=== PATIENT | female | born 1965 | race Caucasian/White ===

== ENCOUNTER 2017-02-15 23:57 | Emergency (ER) | payer MEDICAID ==
[2017-02-16 00:06] VITALS: TEMP 98.1
--- NOTE | 2017-02-16 00:09 | EDPHY ---
H & P Stated Complaint: fall, L head lac HPI/ROS: HPI CHIEF COMPLAINT: Alcohol intoxication, fall, head injury, head laceration HISTORY OF PRESENT ILLNESS: This patient is a 51-year-old female, she presents emergency room by EMS after she slipped on water at the [facility]. Patient brought to the [facility] earlier as she is highly intoxicated with alcohol. She is an alcoholic drinks daily. She states that she slipped and fell and hit her head on the ground. Unclear if there was LOC. She sustained a left eyebrow hematoma and laceration. She denies any other areas of injury specifically denies chest pain shortness of breath, extremity pain. Denies neck pain. Past Medical History: Alcoholism, daily alcohol use, left chest AICD Past Surgical History: Left chest AICD Social History: Lives in [place], daily alcohol use. Family History: Noncontributory ROS REVIEW OF SYSTEMS: A comprehensive 10 point review of systems is otherwise negative aside from elements mentioned in the history of present illness. Exam Constitutional triage nursing summary reviewed, vital signs reviewed, awake/ alert. Eyes normal conjunctivae and sclera, EOMI, PERRLA. HENT head/neck: Left eyebrow hematoma present, with laceration, otherwise no evidence of significant head trauma, no midline step-offs of the cervical spine or crepitus or significant signs of neck trauma. moist mucus membranes, no epistaxis, neck supple/ no meningismus, no raccoon eyes. Respiratory clear to auscultation bilaterally, normal breath sounds, no respiratory distress, no wheezing. Cardiovascular rate normal, regular rhythm, no murmur, no edema, distal pulses normal. Gastrointestinal soft, non-tender, no rebound, no guarding, normal bowel sounds, no distension, no pulsatile mass. Genitourinary no CVA tenderness. Musculoskeletal no midline vertebral tenderness, full range of motion, no calf swelling, no tenderness of extremities, no meningismus, good pulses, neurovascularly intact. Skin pink, warm, & dry, no rash, skin atraumatic. Neurologic awake, alert and oriented x 3, AAOx3, moves all 4 extremities equally, motor intact, sensory intact, CN II-XII intact, normal cerebellar, normal vision, normal speech. Psychiatric normal mood/affect. Heme/Lymph/Immune no lymphadenopathy. Differential Diagnosis: Includes but is not to in a particular order head injury, intracranial bleed, skull fracture, scalp contusions, scalp hematoma, soft tissue injury, scalp laceration, acute alcohol intoxication, electrolyte disturbance Medical Decision Making: Plan for this patient CT head without contrast for trauma, CT cervical spine without contrast trauma, basic blood work, gentle IV hydration, check alcohol level. Repair laceration. Check on Tetanus Status. Re-evaluation: 1235: CT scan head and neck for trauma negative for acute traumatic injury. No intracranial bleed or skull fracture. Called to me by Dr. Denise. Laceration Repair Procedure: Verbal Consent was obtained, Under sterile conditions, The patient had lidocaine with epinephrine used approximately 5ccs to local anesthetize the left eyebrow laceration 3 cm in length . The wound was copiously irrigated with sterile fluid, the wound was explored for foreign bodies there were none visualized, the wound was explored with a sterile glove to the base. There are no deep structures involved, including no arterial injury. Three 6.O PROLENE interrupted Sutures were placed in this patient's laceration. She had good close approximation of the wound edges. She Tolerated this well. 0139: Alcohol level 440. Blood work reviewed. She appears dehydrated I have ordered her L normal saline bolus. Will continue to monitor her for sobriety. Source: Patient - Personal History LMP (Females 10-55): Post Menopausal Current Tetanus/Diphtheria Vaccine: No - Medical/Surgical History Hx Asthma: No Hx Chronic Respiratory Disease: No Hx Diabetes: No Hx Cardiac Disease: Yes Hx Renal Disease: No Hx Cirrhosis: No Hx Alcoholism: Yes Hx HIV/AIDS: No Hx Splenectomy or Spleen Trauma: No Other PMH: defibrillator, [place] 2008,. anxiety, depression, alcoholism. gallbladder removed, catarac sx - Social History Smoking Status: Former smoker Constitutional: Initial Vital Signs Temperature (C) 36.7 C 02/16/17 00:02 Heart Rate 100 02/16/17 00:02 Respiratory Rate 18 02/16/17 00:02 Blood Pressure 132/91 H 02/16/17 00:02 O2 Sat (%) 95 02/16/17 00:02 O2 Delivery Mode Room Air Allergies/Adverse Reactions: nickel Allergy (Verified 02/16/17 00:06) Home Medications: Medication Instructions Recorded Atorvastatin Calcium 02/16/17 Lisinopril 02/16/17 Metoprolol Tartrate 02/16/17 traZODone 02/16/17 Medical Decision Making - Diagnostics Imaging Results: Imaging Impressions Cervical Spine CT 02/16/17 00:11 Impression: 1. No acute intracranial abnormality seen. 2. No acute abnormality seen about the cervical spine. Mild to moderate disk space narrowing at C4-C5 and at C5-C6. 3. Soft tissue contusion over the left orbit without underlying fracture. 4. Cerebral atrophy more than would be expected for age. This can be seen with chronic alcohol use. If symptoms worsen, additional imaging may be necessary. Findings discussed with Lico Nair MD at 0:33 hour, 02/16/2017. Head CT 02/16/17 00:11 Impression: 1. No acute intracranial abnormality seen. 2. No acute abnormality seen about the cervical spine. Mild to moderate disk space narrowing at C4-C5 and at C5-C6. 3. Soft tissue contusion over the left orbit without underlying fracture. 4. Cerebral atrophy more than would be expected for age. This can be seen with chronic alcohol use. If symptoms worsen, additional imaging may be necessary. Findings discussed with Lico Nair MD at 0:33 hour, 02/16/2017. - Data Points Laboratory Results: Laboratory Results 02/16/17 00:34 02/16/17 00:34 02/16/17 02/16/17 02/16/17 00:34 00:34 00:34 WBC 5.40 10^3/uL 10^3/uL (3.80-9.50) RBC 3.90 10^6/uL L 10^6/uL (4.18-5.33) Hgb 13.9 g/dL g/dL (12.6-16.3) Hct 39.8 % % (38.0-47.0) MCV 102.1 fL H fL (81.5-99.8) MCH 35.6 pg H pg (27.9-34.1) MCHC 34.9 g/dL g/dL (32.4-36.7) RDW 14.1 % % (11.5-15.2) Plt Count 111 10^3/uL L 10^3/uL (150-400) MPV 9.9 fL fL (8.7-11.7) Neut % (Auto) 28.3 % L % (39.3-74.2) Lymph % (Auto) 59.6 % H % (15.0-45.0) Dixie % (Auto) 8.9 % % (4.5-13.0) Eos % (Auto) 2.2 % % (0.6-7.6) Baso % (Auto) 0.6 % % (0.3-1.7) Nucleat RBC Rel Count 0.0 % % (0.0-0.2) Absolute Neuts (auto) 1.53 10^3/uL L 10^3/uL (1.70-6.50) Absolute Lymphs (auto) 3.22 10^3/uL H 10^3/uL (1.00-3.00) Absolute Monos (auto) 0.48 10^3/uL 10^3/uL (0.30-0.80) Absolute Eos (auto) 0.12 10^3/uL 10^3/uL (0.03-0.40) Absolute Basos (auto) 0.03 10^3/uL 10^3/uL (0.02-0.10) Absolute Nucleated RBC 0.00 10^3/uL 10^3/uL (0-0.01) Immature Gran % 0.4 % % (0.0-1.1) Immature Gran # 0.02 10^3/uL 10^3/uL (0.00-0.10) PT 11.3 SEC L SEC (12.0-15.0) INR 0.80 L (0.83-1.16) APTT 22.1 SEC L SEC (23.0-38.0) Sodium 151 mEq/L H mEq/L (134-144) Potassium 3.9 mEq/L mEq/L (3.5-5.2) Chloride 112 mEq/L H mEq/L (97-110) Carbon Dioxide 22 mEq/l mEq/l (22-31) Anion Gap 17 mEq/L H mEq/L (8-16) BUN 12 mg/dL mg/dL (7-23) Creatinine 0.7 mg/dL mg/dL (0.6-1.0) Estimated GFR > 60 Glucose 146 mg/dL H mg/dL (70-100) Calcium 10.3 mg/dL mg/dL (8.5-10.4) Ethyl Alcohol 446 mg/dL H* mg/dL (0-10) Medications Given: Discontinued Medications Ibuprofen (Motrin) 800 mg PO EDNOW ONE Stop: 02/16/17 00:13 Last Admin: 02/16/17 01:14 Dose: 800 mg Departure - Departure Disposition: Home, Routine, Self-Care Clinical Impression: Alcohol intoxication, Hematoma, Laceration of head Condition: Good Instructions: Care For Your Stitches (ED), Laceration (ED), Contusion in Adults (ED), Facial Contusion (ED) Additional Instructions: 1. Your sutures need to be removed in 7 days. 2. Return to the emergency to have your sutures removed. Referrals: Patient,NotPresent [Unknown] - As per Instructions
[2017-02-16] MEDS: IBUPROFEN 800 MG TAB PO ONE ×2 (00:27→01:14)
[2017-02-16 00:42] LABS: PLATELET COUNT 111 10^3/uL (150-400)
[2017-02-16 01:09] LABS: INR 0.8 (0.83-1.16); PROTIME(PATIENT) 11.3 SEC (12.0-15.0)
[2017-02-16] MEDS ORDERED: IBUPROFEN 600 MG TAB PO ONE (01:11)
[2017-02-16] MEDS ORDERED: IBUPROFEN 800 MG TAB PO ONE (01:13)
[2017-02-16 01:38] VITALS: RESP 16
[2017-02-16] MEDS ORDERED: NS 1,000 ML IV ONE (01:38)
[2017-02-16 05:59] VITALS: BP 117/81; PULSE 88; O2SAT 93
[2017-02-16] MEDS ORDERED: CHLORDIAZEPOXIDE 25MG PREPK#6 BTL TAKEHOME ONE ×2 (06:15→06:16)
== END 2017-02-16 06:20 | disposition home or self-care (01) ==
LOC: EDUNIT#
PROC: 0HQ1XZZ Repair Face Skin, External Approach (ICD-10-PCS; principal; 2017-02-15)
DX: S01.112A Laceration without foreign body of left eyelid and periocular area, initial encounter (principal); F10.129 Alcohol abuse with intoxication, unspecified; I25.2 Old myocardial infarction; Z87.891 Personal history of nicotine dependence; W01.198A Fall on same level from slipping, tripping and stumbling with subsequent striking against other object, initial encounter
CPT/HCPCS: G0480

== ENCOUNTER 2017-02-17 12:17 | Emergency (ER) | payer MEDICAID ==
[2017-02-17 12:35] VITALS: TEMP 98.4
--- NOTE | 2017-02-17 12:59 | EDPHY ---
H & P Stated Complaint: DETOX Time Seen by Provider: 02/17/17 12:35 HPI/ROS: CHIEF COMPLAINT: Tremors HISTORY OF PRESENT ILLNESS: The patient is a 51 y/o female with a history of alcoholism, hypertension, and hypercholesterolemia arriving from the [facility] complaining of tremors while undergoing alcohol detox. She fell and hit her head on 02/16 and was evaluated here. Head and cervical spine CT were negative for acute findings. She has not had Librium since yesterday and is tremulous. She has associated pain on the left side of her face from her fall. She denies headache, change in vision, trouble chewing, or any other associated symptoms. Her last period of sobriety lasted 3 years and ended 20 years ago. She denies illicit drug use. REVIEW OF SYSTEMS: A 10 point review of systems was performed and is negative with the exception of the elements mentioned in the history of present illness. PAST MEDICAL HISTORY: 1. Alcoholism 2. Hypertension 3. Hypercholesterolemia 4. MA 5. Ovarian cyst removed in October 08 PAST SURGICAL HISTORY: 1. Defibrillator 2. Cholecystectomy FAMILY HISTORY: Non-contributory SOCIAL HISTORY: Heavy alcohol use, lives in [place], former smoker Adult Physical: General Appearance: Alert, no acute distress. Tremulous. Tachycardic at 113. Hypertensive at 161/109 Eyes: Pupils equal and round, no conjunctival injection, no discharge. Periorbital ecchymosis OS. EOMI bilaterally. ENT, Mouth: Mucous membranes are moist, no oropharyngeal erythema or edema. No dental injury. Neck: No lymphadenopathy, supple. Nontender to palpation of the cervical spine in the midline. Head: Left parietal ecchymoses. Respiratory: Lungs are clear to auscultation; no wheezes, rales, or rhonchi. Cardiovascular: Regular rate and rhythm; no murmur, rub, or gallop. Gastrointestinal: Abdomen is soft and non tender, no masses or organomegaly, bowel sounds normal. Skin: Warm and dry, no rashes, normal color. Back: Nontender to palpation over the thoracolumbar spine. Extremities: No lower extremity edema, no calf tenderness or swelling. Neurological: Alert and oriented. Moving all four extremities easily and equally. Tremulous Psychiatric: Normal affect. - Personal History Current Tetanus/Diphtheria Vaccine: Yes - Medical/Surgical History Hx Asthma: No Hx Chronic Respiratory Disease: No Hx Diabetes: No Hx Cardiac Disease: Yes Hx Renal Disease: No Hx Cirrhosis: No Hx Alcoholism: Yes Hx HIV/AIDS: No Hx Splenectomy or Spleen Trauma: No Other PMH: defibrillator, [place] 2009,. anxiety, depression, alcoholism. gallbladder removed, catarac sx - Social History Smoking Status: Former smoker Constitutional: Initial Vital Signs Temperature (C) 36.9 C 02/17/17 12:34 Heart Rate 113 H 02/17/17 12:34 Respiratory Rate 16 02/17/17 12:34 Blood Pressure 161/109 H 02/17/17 12:34 O2 Sat (%) 96 02/17/17 12:34 O2 Delivery Mode Room Air Allergies/Adverse Reactions: nickel Allergy (Verified 02/16/17 00:06) Home Medications: Medication Instructions Recorded Atorvastatin Calcium 02/16/17 Lisinopril 02/16/17 Metoprolol Tartrate 02/16/17 traZODone 02/16/17 Medical Decision Making ED Course/Re-evaluation: She received BuSpar, Zestril, and Librium in the emergency department. She regularly takes BuSpar and Zestril but they [facility] not [facility]. I reassessed the patient at 14:38 and found her condition improved. She is no longer tachycardic or tremulous. I feel that her tremor was related to alcohol withdrawal. I contacted [facility] who indicated that she has been tremulous for over 24 hours, causing concern for other issues. Her mother will bring her regular medications. I feel that she is safe to return to the [facility]. Librium will be available for her should it be needed. She expresses interest in sobriety. Differential Diagnosis: I considered a differential diagnosis that includes but is not limited to tremor related to alcohol withdrawal, benign essential tremor, seizures, and chills related to infection. - Data Points Medications Given: Discontinued Medications Buspirone HCl (Buspar) 10 mg PO EDNOW ONE Stop: 02/17/17 13:37 Last Admin: 02/17/17 14:24 Dose: 10 mg Chlordiazepoxide HCl (Librium) 25 mg PO EDNOW ONE Stop: 02/17/17 13:16 Last Admin: 02/17/17 13:25 Dose: 25 mg Lisinopril (Zestril) 20 mg PO EDNOW ONE Stop: 02/17/17 13:37 Last Admin: 02/17/17 14:24 Dose: 20 mg Departure - Departure Disposition: Home, Routine, Self-Care Clinical Impression: Alcohol withdrawal Qualifiers: Complication of substance-induced condition: with unspecified complication Qualified Code(s): F10.239 - Alcohol dependence with withdrawal, unspecified Hypertension Qualifiers: Hypertension type: essential hypertension Qualified Code(s): I10 - Essential ( primary) hypertension Condition: Good Instructions: Alcohol Withdrawal (ED), Hypertension (ED) Additional Instructions: Continue all of your regular prescribed medications. Referrals: [facility] [Outside] - As per Instructions Report Scribed for: Berna Barone Report Scribed by: Vanessa Campbell Date of Report: 02/17/17 Time of Report: 14:32 Physician Review and Approval Statement: 02/17/17 14:33 Portions of this note were transcribed by a certified medical aide. I personally performed a history, physical exam, medical decision making, and confirmed accuracy of information the transcribed note.
[2017-02-17] MEDS ORDERED: chlordiazePOXIDE 25 MG CAP PO ONE (13:15)
[2017-02-17] MEDS ORDERED: LISINOPRIL 20 MG TAB PO ONE (13:36)
[2017-02-17] MEDS ORDERED: busPIRone 10 MG TAB PO ONE (13:36)
--- NOTE | 2017-02-17 14:46 | ASMTCMCOM ---
CM Note CM Note Notes: Patient presents to the ER today from the [facility] with c/o tremors and requesting help with withdrawal symptoms. Her plan is to return to the [facility] upon D/C from the ER and is trying to get her home medications. Patient explains that her mother (Jazmin) has access to her prescriptions at the [facility] in [place]. I have called Jazmin , confirmed that she is able to pick up man and bring medications to patient at the [facility] this afternoon. I have provided Jazmin with the address and phone number for the [facility]. She will bring medications to the [facility] this afternoon after 4 PM. Patient is aware of this plan Date Signed: 02/17/2017 02:45 PM Electronically Signed By:Misty Luz RN
[2017-02-17 15:05] VITALS: BP 160/102; PULSE 84; RESP 18; O2SAT 97
== END 2017-02-17 15:10 | disposition home or self-care (01) ==
DX: F10.239 Alcohol dependence with withdrawal, unspecified (principal); I10 Essential (primary) hypertension; I25.2 Old myocardial infarction; Z87.891 Personal history of nicotine dependence